=== PATIENT | male | born 1935 | race Caucasian/White ===

== ENCOUNTER 2018-06-16 10:29 | Emergency (ER) | payer OTHER ==
[~2018-06-16] VITALS: Ht 180.3 cm; Wt 100.2 kg
[~2018-06-16 10:29] MED LIST: ATEN50TA8 PO; PRSUNK PO
[2018-06-16 10:41] VITALS: TEMP 36.4; Ht 180.3 cm; Wt 100.2 kg
--- NOTE | 2018-06-16 11:24 | EMERGENCY ROOM VISIT NOTE ---
History Report prepared by Mary: Jocelyne Moncada Under the Supervision of: Dr. Jody Dimas M.D. First contact with patient: 11:03 Chief Complaint: SHORTNESS OF BREATH Stated Complaint: SOB,PAIN IN STOMACH,VOMITING BLOOD History of Present Illness The patient is an 82 year old male who presents to the Emergency Room with complaints of rib pain beginning 2 days ago. The patient states that he was riding on his mower 2 days ago when he got a pain in his back that he thinks was secondary to the mower. The patient reports that his back pain also radiated to his ribs. He reports that 2 nights ago he had to sit up to sleep. The patient reports taking Advil for his pain and states that breathing exacerbated his pain. He states that last night he laid on his right side to sleep. He denies falling and denies a history of back or rib problems. The patient reports feeling short of breath today and states that yesterday morning he coughed up some blood. He denies vomiting. The patient denies being on blood thinners. He reports a history of hypertension and denies a history of smoking. Source of History: patient Onset: 2 days ago Position: other (ribs) Quality: other (pain) Modifying Factors (Worsening): breathing Associated Symptoms: + SOB, No vomiting Review of Systems See HPI for pertinent positives & negatives. A total of 10 systems reviewed and were otherwise negative. Past Medical & Surgical Medical Problems: (1) HTN (hypertension) (2) Kidney disease (3) Ulcer Family History Cancer Diabetes mellitus Heart disease Hypertension Kidney disease Social History Smoking Status: Never Smoker Alcohol Use: none Housing Status: lives alone Occupation Status: retired Current/Historical Medications Scheduled Atenolol (Tenormin), 75 MG PO BID Finasteride (Proscar), 5 MG PO DAILY Lisinopril (Prinivil), 10 MG PO DAILY Allergies Coded Allergies: Sulfa Antibiotics (Unverified Allergy, Intermediate, ITCHING, 06/16/18) Physical Exam Vital Signs Date Time Temp Pulse Resp B/P (MAP) Pulse Ox O2 Delivery O2 Flow Rate FiO2 06/16/18 15:00 96 20 127/85 94 06/16/18 14:30 96 20 127/85 94 Room Air 06/16/18 12:29 98 25 136/72 92 Room Air 8/10/18 12:17 96 06/16/18 11:13 Room Air 06/16/18 11:13 Room Air 06/16/18 10:41 36.4 22 103/61 Room Air Physical Exam Vital signs reviewed. General: Well-appearing male, in no significant distress. HEENT: No scleral icterus, PERRLA, neck supple. Atraumatic. Cardiovascular: Regular rate and rhythm, no extra sounds. Pulmonary: Crackles to the left base, normal work of breathing. Some increased WOB noted with speaking. Abdomen: Soft, nontender, nondistended, positive bowel sounds. Musculoskeletal: Atraumatic, no peripheral edema. No appreciable tenderness to the rig cage along the left side. Neurologic: Patient awake alert and oriented x 3, full strength in all 4 extremities. Cranial nerves 2 through 12 grossly intact. Skin: Warm, dry, no rash Medical Decision & Procedures ER Provider Diagnostic Interpretation: Radiology results as stated below per my review and radiologist interpretation: CHEST 2 VIEWS ROUTINE CLINICAL HISTORY: L rib pain. SOB pain COMPARISON STUDY: No previous studies for comparison. FINDINGS: Infiltrate left base. Lungs otherwise appear clear. Diaphragms smooth. IMPRESSION: Infiltrate left base. The above report was generated using voice recognition software. It may contain grammatical, syntax or spelling errors. Electronically signed by: Gio Vidal M.D. 06/16/2018 12:05 PM Dictated Date/Time: 06/16/2018 12:04 PM (CHEST FOR PE) ANGIO WITH CLINICAL HISTORY: 82 years-old Male presenting with chest pain, shortness of breath, vomiting blood. TECHNIQUE: Multidetector CT angiography of the chest was performed after administration of intravenous contrast. 3-D volumetric and/or maximum intensity projection (MIP) images were subsequently reconstructed for review. IV contrast: 94 mL of Optiray 320. A dose lowering technique was used consistent with the principles of ALARA (as low as reasonably achievable). COMPARISON: Chest x-ray performed earlier today. CT DOSE (mGy.cm): The estimated cumulative dose is 535.15 mGycm. FINDINGS: Workforce Analyst topogram: Unremarkable. Pulmonary vasculature: The study is adequate for assessment of the pulmonary vascular tree. Extensive bilateral acute pulmonary emboli involving the main pulmonary arteries bilaterally, the right to a greater degree. Main pulmonary artery mildly enlarged measuring 3.2 cm in diameter. Flattening of the interventricular septum. No intracardiac filling defect. Reflux of contrast into the IVC and hepatic veins. Remaining chest: On soft tissue windows, normal thyroid and thoracic inlet. No axillary, supraclavicular, hilar, or mediastinal lymphadenopathy. Atherosclerosis of the aorta. Mild multichamber enlargement of the heart. Coronary artery calcification. No pericardial or pleural effusion. Cholecystectomy clips noted. On lung windows, extensive primarily groundglass opacity involving the peripheral left lower lobe the lung base. Few scattered linear opacities in the lungs likely scarring or atelectasis. No other focal infiltrate. Airways patent. No significant bronchial wall thickening. On bone windows, degenerative changes of the spine. Degenerative changes of the glenohumeral joints greater on the left. IMPRESSION: 1. Acute bilateral pulmonary emboli with a significant embolus burden. Significant involvement of the right main pulmonary artery. CT evidence to suggest right heart strain. 2. Extensive infiltrate in the periphery of the left lower lobe. Developing pulmonary infarct cannot be excluded. The report will be called/faxed according to standard departmental protocol. Electronically signed by: Kj Griffin M.D. 06/16/2018 1:07 PM Dictated Date/Time: 06/16/2018 12:57 PM Laboratory Results 06/16/18 11:40 Red Blood Count 4.62, Mean Corpuscular Volume 91.3, Mean Corpuscular Hemoglobin 31.8, Mean Corpuscular Hemoglobin Concent 34.8, Mean Platelet Volume 9.4, Neutrophils (%) (Auto) 81.1, Lymphocytes (%) (Auto) 8.0, Monocytes (%) (Auto) 10.5, Eosinophils (%) (Auto) 0.1, Basophils (%) (Auto) 0.0, Neutrophils # (Auto ) 14.70, Lymphocytes # (Auto) 1.44, Monocytes # (Auto) 1.90, Eosinophils # (Auto ) 0.01, Basophils # (Auto) 0.00 06/16/18 11:40 Test 06/16/18 11:40 06/16/18 14:07 06/16/18 14:12 White Blood Count 18.11 K/uL (4.8-10.8) Red Blood Count 4.62 M/uL (4.7-6.1) Hemoglobin 14.7 g/dL (14.0-18.0) Hematocrit 42.2 % (42-52) Mean Corpuscular Volume 91.3 fL (80-100) Mean Corpuscular Hemoglobin 31.8 pg (25-34) Mean Corpuscular Hemoglobin Concent 34.8 g/dl (32-36) Platelet Count 159 K/uL (130-400) Mean Platelet Volume 9.4 fL (7.4-10.4) Neutrophils (%) (Auto) 81.1 % Lymphocytes (%) (Auto) 8.0 % Monocytes (%) (Auto) 10.5 % Eosinophils (%) (Auto) 0.1 % Basophils (%) (Auto) 0.0 % Neutrophils # (Auto) 14.70 K/uL (1.4-6.5) Lymphocytes # (Auto) 1.44 K/uL (1.2-3.4) Monocytes # (Auto) 1.90 K/uL (0.11-0.59) Eosinophils # (Auto) 0.01 K/uL (0-0.5) Basophils # (Auto) 0.00 K/uL (0-0.2) RDW Standard Deviation 47.4 fL (36.4-46.3) RDW Coefficient of Variation 14.2 % (11.5-14.5) Immature Granulocyte % (Auto) 0.3 % Immature Granulocyte # (Auto) 0.06 K/uL (0.00-0.02) Prothrombin Time 10.5 SECONDS (9.0-12.0) Prothromb Time International Ratio 1.0 (0.9-1.1) Activated Partial Thromboplast Time 31.7 SECONDS (21.0-31.0) Partial Thromboplastin Ratio 1.2 D-Dimer 3410 ug/L FEU (0-500) Anion Gap 8.0 mmol/L (3-11) Est Creatinine Clear Calc Drug Dose 46.5 ml/min Estimated GFR () 51.2 Estimated GFR (Non- 44.2 BUN/Creatinine Ratio 16.5 (10-20) Calcium Level 8.9 mg/dl (8.5-10.1) Total Bilirubin 0.7 mg/dl (0.2-1) Direct Bilirubin 0.2 mg/dl (0-0.2) Aspartate Amino Transf (AST/SGOT) 22 U/L (15-37) Alanine Aminotransferase (ALT/SGPT) 23 U/L (12-78) Alkaline Phosphatase 82 U/L (45-117) Troponin I 0.452 ng/ml (0-0.045) Total Protein 8.0 gm/dl (6.4-8.2) Albumin 3.0 gm/dl (3.4-5.0) Urine Color DK YELLOW Urine Appearance CLOUDY (CLEAR) Urine pH 5.0 (4.5-7.5) Urine Specific [place] > 1.045 (1.000-1.030) Urine Protein 1+ (NEG) Urine Glucose (UA) NEG (NEG) Urine Ketones NEG (NEG) Urine Occult Blood TRACE (NEG) Urine Nitrite POS (NEG) Urine Bilirubin NEG (NEG) Urine Urobilinogen NEG (NEG) Urine Leukocyte Esterase MODERATE (NEG) Urine WBC (Auto) >30 /hpf (0-5) Urine RBC (Auto) 0-4 /hpf (0-4) Urine Hyaline Casts (Auto) 10-30 /lpf (0-5) Urine Epithelial Cells (Auto) 0-5 /lpf (0-5) Urine Bacteria (Auto) 4+ (NEG) Bedside Lactic Acid Venous 1.71 mmol/L (0.90-1.70) Laboratory results per my review. Medications Administered Medications (Trade) Dose Ordered Sig/Soraida Route Start Time Stop Time Status Last Admin Dose Admin Sodium Chloride 1,000 ml @ 100 mls/hr Q10H STAT IV 06/16/18 11:25 06/16/18 15:27 DC 06/16/18 13:16 100 MLS/HR Aspirin (Aspirin Chew) 324 mg NOW STAT PO 06/16/18 12:20 06/16/18 12:21 DC 06/16/18 13:17 324 MG Heparin Sodium (Porcine) (Heparin Iv Bolus) 7,000 unit NOW STAT IV 06/16/18 13:45 06/16/18 13:46 DC 06/16/18 14:35 7,000 UNIT Heparin Sodium/ Dextrose 500 ml @ 31 mls/hr Q16H8M IV 06/16/18 13:45 06/16/18 15:27 DC 06/16/18 14:36 31 MLS/HR ECG Per My Interpretation Indication: SOB/dyspnea Rate (beats per minute): 103 Rhythm: sinus tachycardia Findings: 1st degree AV block, T-wave inversion (Anterolateral and inferior leads), other (no previous inferior infarct) Comparison ECG Date: no prior available ED Course 1114: Past medical records reviewed. The patient was evaluated in room C10. A complete history and physical examination was performed. 1329: I updated the patient and talked about transfer. The patient is agreeable to going to [facility]. 1337: I reviewed the patient's case with Dr. Lawson-[facility] Foot Specialist regarding the patient. 1338: I reviewed the patient's case with Dr. Spencer-[facility] Hospitalist who accepted the patient to the step-down unit. He will evaluate the patient for further management. Medical Decision The patient is an 82 year old male who presents to the ED with complaints of rib pain. Differentials include rib fracture, muscle strain, pyelonephritis, pleural effusion, pneumonia, PE, and pulmonary infarct. This patient was evaluated and appeared to be in no significant distress. Patient's vital signs remained fairly stable. Patient had no oxygen requirement on room air. Chest x-ray was performed and reveals evidence of a left basilar infiltrate. EKG reveals a sinus tachycardia with a first-degree AV block and T-wave inversion. There is no previous for comparison. D-dimer is elevated at greater than 3000. CT scan of the chest was performed and reveals extensive clot burden, bilateral PE, left pulmonary infarct and right heart strain. Laboratory work also reveals an elevated troponin. The patient remains comfortable and stable on room air. IV heparin was initiated. I did speak with the pulmonary critical care doc,, Dr. Lawson at [facility]. She recommended a serum lactate. The [id number] lactate is 1.7. The patient has had no syncope and has stable vital signs. She states it is unlikely that he would go for thrombectomy and that IV heparin should be initiated. She has recommended transfer to their facility to the stepdown unit for monitoring and IV therapy in case interventional radiology would be needed due to the massive clot burden. Dr. Spencer of the hospitalist service at [facility] was consulted and did accept the patient. Ground transportation arrangements were made. The patient and family were informed of the findings and have agreed with the plan. The [facility] ALS crew did transfer by ground. Medication Reconcilliation Current Medication List: was personally reviewed by me Blood Pressure Screening Patient's blood pressure: Normal blood pressure Consults Time Called: 1325 Consulting Physician: Dr. Anne Foot Specialist Returned Call: [phone] I reviewed the patient's case with Dr. Anne Foot Specialist regarding the patient. Additional Consults: Time Called: 1337 Consulted Physician: Dr. Pacheco Hospitalist Returned Call: [phone] Additional Comments: I reviewed the patient's case with Dr. Pacheco Hospitalist who accepted the patient to the step-down unit. He will evaluate the patient for further management. Impression Primary Impression: Bilateral pulmonary embolism Additional Impressions: right heart strain Elevated troponin Pulmonary infarct Critical Care I have personally spent greater than 60 minutes of critical care time in the direct management of this patient. This includes bedside care, interpretation of diagnostic studies, and testing, discussion with consultants, patient, and family members, and other required patient management activities. This 60 minutes is in excess of all separately billable procedures. Scribe Attestation The scribe's documentation has been prepared under my direction and personally reviewed by me in its entirety. I confirm that the note above accurately reflects all work, treatment, procedures, and medical decision making performed by me. Departure Information Dispostion Transfer Acute Care Facility Referrals Colby Diaz III, M.D. (PCP) Patient Instructions My [facility] Problem Qualifiers
[2018-06-16] MEDS ORDERED: SODIUM CHLORIDE 0.9% 1000ML 1,000 ML IV STA (11:25)
[2018-06-16] MEDS ORDERED: ATEN50TA8 PO (11:30)
[2018-06-16] MEDS ORDERED: FINA5TAB PO (11:30)
[2018-06-16] MEDS ORDERED: LISI10TA PO (11:30)
[2018-06-16 11:52] LABS: EOS % 0.1 %; EOS ABS # 0.01 K/uL (0-0.5); HEMATOCRIT 42.2 % (42-52); HEMOGLOBIN 14.7 g/dL (14.0-18.0); IG# 0.06 K/uL (0.00-0.02); LYMPH ABS # 1.44 K/uL (1.2-3.4); MEAN CELL VOLUME 91.3 fL (80-100); MEAN CORPUSCULAR HEMOGLOBIN 31.8 pg (25-34); MEAN CORPUSCULAR HGB CONC 34.8 g/dl (32-36); MEAN PLATELET VOLUME 9.4 fL (7.4-10.4); MONO % 10.5 %; NEUT % 81.1 %; PLATELET COUNT 159 K/uL (130-400); RED CELL DISTRIBUTION WIDTH CV 14.2 % (11.5-14.5); RED CELL DISTRIBUTION WIDTH SD 47.4 fL (36.4-46.3); WHITE BLOOD COUNT 18.11 K/uL (4.8-10.8)
--- NOTE | 2018-06-16 12:06 | DIAGNOSTIC IMAGING REPORT ---
CHEST 2 VIEWS ROUTINE CLINICAL HISTORY: L rib pain. SOB pain COMPARISON STUDY: No previous studies for comparison. FINDINGS: Infiltrate left base. Lungs otherwise appear clear. Diaphragms smooth. IMPRESSION: Infiltrate left base. The above report was generated using voice recognition software. It may contain grammatical, syntax or spelling errors. Electronically signed by: Gio Vidal M.D. 06/16/2018 12:05 PM Dictated Date/Time: 06/16/2018 12:04 PM
[2018-06-16 12:20] LABS: CALCIUM 8.9 mg/dl (8.5-10.1); CREATININE 1.45 mg/dl (0.60-1.40); POTASSIUM 4.1 mmol/L (3.5-5.1)
[2018-06-16] MEDS ORDERED: ASPIRIN 324 MG CHEW PO STA (12:20)
[2018-06-16] MEDS ORDERED: OPTIRAY 320 IV PRN (12:30)
--- NOTE | 2018-06-16 13:08 | DIAGNOSTIC IMAGING REPORT ---
(CHEST FOR PE) ANGIO WITH CLINICAL HISTORY: 82 years-old Male presenting with chest pain, shortness of breath, vomiting blood. TECHNIQUE: Multidetector CT angiography of the chest was performed after administration of intravenous contrast. 3-D volumetric and/or maximum intensity projection (MIP) images were subsequently reconstructed for review. IV contrast: 94 mL of Optiray 320. A dose lowering technique was used consistent with the principles of ALARA (as low as reasonably achievable). COMPARISON: Chest x-ray performed earlier today. CT DOSE (mGy.cm): The estimated cumulative dose is 535.15 mGycm. FINDINGS: Senior Informatica Developer topogram: Unremarkable. Pulmonary vasculature: The study is adequate for assessment of the pulmonary vascular tree. Extensive bilateral acute pulmonary emboli involving the main pulmonary arteries bilaterally, the right to a greater degree. Main pulmonary artery mildly enlarged measuring 3.2 cm in diameter. Flattening of the interventricular septum. No intracardiac filling defect. Reflux of contrast into the IVC and hepatic veins. Remaining chest: On soft tissue windows, normal thyroid and thoracic inlet. No axillary, supraclavicular, hilar, or mediastinal lymphadenopathy. Atherosclerosis of the aorta. Mild multichamber enlargement of the heart. Coronary artery calcification. No pericardial or pleural effusion. Cholecystectomy clips noted. On lung windows, extensive primarily groundglass opacity involving the peripheral left lower lobe the lung base. Few scattered linear opacities in the lungs likely scarring or atelectasis. No other focal infiltrate. Airways patent. No significant bronchial wall thickening. On bone windows, degenerative changes of the spine. Degenerative changes of the glenohumeral joints greater on the left. IMPRESSION: 1. Acute bilateral pulmonary emboli with a significant embolus burden. Significant involvement of the right main pulmonary artery. CT evidence to suggest right heart strain. 2. Extensive infiltrate in the periphery of the left lower lobe. Developing pulmonary infarct cannot be excluded. The report will be called/faxed according to standard departmental protocol. Electronically signed by: Kj Griffin M.D. 06/16/2018 1:07 PM Dictated Date/Time: 06/16/2018 12:57 PM
[2018-06-16] MEDS ORDERED: HEPARIN 25,000 UNIT/500ML D5W 500 ML IV SCH (13:45)
[2018-06-16] MEDS ORDERED: HEPARIN SOD (PORCINE) 1000 UNIT/ML 10 ML VIAL IV STA (13:45)
[2018-06-16 14:13] LABS: PTT PATIENT 31.7 SECONDS (21.0-31.0)
[2018-06-16 15:00] VITALS: BP 127/85; PULSE 96; O2SAT 94
== END 2018-06-16 15:00 | disposition short-term general hospital (02) ==
LOC: C.EDB 10:30 → C.EDC 15:00
DX: I26.99 Other pulmonary embolism without acute cor pulmonale (principal); R77.8 Other specified abnormalities of plasma proteins; I10 Essential (primary) hypertension; Z88.2 Allergy status to sulfonamides